=== PATIENT | male | born 1950 | race African-American/Black ===

== ENCOUNTER 2019-07-25 10:26 | Outpatient (CLI) | payer OTHER ==
--- NOTE | 2019-07-25 11:39 | ULT ---
Exam: Bilateral renal ultrasound HISTORY: Evaluate renal cysts COMPARISON: None FINDINGS: Right kidney: No hydronephrosis. Complex hypoechoic focus in the mid pole measuring 2.4 x 2.4 x 2.1 c m suggesting complex cyst. Right kidney measurements: 6.2 x 6.2 x 11 point cm. Left kidney: No hydronephrosis. 1.9 x 1.9 x 1.9 cm anechoic focus in the upper pole compatible with a cyst. 1.1 x 1.1 x 1.0 cm anechoic focus in the lower pole, compatible with a cyst. Left kidney measurements 7.1 x 6.1 x 11.3 cm. Urinary bladder: Normal mucosa. Bilateral ureteral jets are identified. IMPRESSION: 1. Limited evaluation due to body habitus. 2. No evidence of hydronephrosis 3. Complex right renal cyst. Follow-up imaging in 6 months is recommended. CODE T
== END 2019-07-25 10:27 | disposition home or self-care (01) ==
LOC: BICULT 10:26
DX: N28.1 Cyst of kidney, acquired (principal)
CPT/HCPCS: 76770